=== PATIENT | female | born 1930 | race Hispanic/Latino ===

== ENCOUNTER 2018-10-12 21:45 | Inpatient (IN) | payer MEDICARE | END 2018-10-17 18:54 | LOC: EDH 21:45 → 2DH 10-13 00:13 → 4CH 10-14 17:18 → 2DH 10-14 17:27 → 4CH 10-14 17:29 → EDHIP 23:35 | DX: A41.9 Sepsis, unspecified organism (principal); E43 Unspecified severe protein-calorie malnutrition; R53.2 Functional quadriplegia; J96.01 Acute respiratory failure with hypoxia; Z68.1 Body mass index [BMI] 19.9 or less, adult; E87.2 Acidosis; I10 Essential (primary) hypertension; R65.20 Severe sepsis without septic shock ==